=== PATIENT | male | born 1970 | race Caucasian/White ===

== ENCOUNTER 2016-05-31 00:46 | Emergency (ER) | payer OTHER ==
[2016-05-31] MEDS ORDERED: PREDNISONE 10 MG TAB ONE ×2 (04:49→04:57)
[2016-05-31] MEDS ORDERED: KETOROLAC 60 MG/2 ML VIAL IM ONE (04:49)
== END 2016-05-31 05:45 | disposition home or self-care (01) ==
LOC: ER 00:46
CPT/HCPCS: 72100; 96372